=== PATIENT | female | born 2000 | race Caucasian/White ===

== ENCOUNTER 2021-03-10 13:01 | Emergency (ER) | payer OTHER ==
[~2021-03-10] VITALS: Ht 167.6 cm; Wt 75.3 kg
== END 2021-03-10 16:45 | disposition home or self-care (01) ==
LOC: EMR PED 13:01
DX: S00.83XA Contusion of other part of head, initial encounter (principal); W19.XXXA Unspecified fall, initial encounter; Y93.89 Activity, other specified; Y92.89 Other specified places as the place of occurrence of the external cause; Y99.8 Other external cause status; R09.81 Nasal congestion; Z03.818 Encounter for observation for suspected exposure to other biological agents ruled out